=== PATIENT | male | born 1970 | race Caucasian/White ===

== ENCOUNTER 2019-03-16 10:17 | Emergency (ER) | payer OTHER ==
[~2019-03-16] VITALS: Ht 177.8 cm; Wt 119.7 kg
[2019-03-16] MEDS ORDERED: SODIUM CHLORIDE 0.9% 1,000 ML IV ONE ×2 (10:45→13:15)
[2019-03-16] MEDS ORDERED: LORazepam 0.5 MG TAB PO ONE (10:45)
[2019-03-16 10:47] LABS: Basophils # (auto) 0.1 uL; Basophils % (auto) 0.6 % (0.0-2.0); Eosinophils # (auto) 0 uL; Eosinophils % (auto) 0.1 % (0.0-7.0); Hematocrit 45.6 % (41.0-53.0); Hemoglobin 15.3 g/dL (13.5-17.5); Lymphocytes # (auto) 1.8 uL; Lymphocytes % (auto) 17.1 % (10.0-50.0); Mean Corpuscular Hemoglobin 29.6 pg (28.0-32.0); Mean Corpuscular Hgb Conc. 33.6 g/dL (32.0-36.0); Mean Corpuscular Volume 88.2 fL (80.0-100.0); Monocytes # (auto) 0.6 uL; Monocytes % (auto) 5.6 % (0.0-12.0); Neutrophils % (auto) 76.6 % (37.0-80.0); Nucleated Red Blood Cells % 0.1 %; Platelet Count (auto) 386 10^3/uL (140-450); Red Blood Cells 5.17 10^6/uL (4.5-5.90); Red Cell Distribution Width 12.8 % (11.8-14.3); White Blood Cell 10.4 10^3/uL (4.4-10.8)
[2019-03-16] MEDS ORDERED: THIAMINE 100mg/ml INJ (200mg/2ml VIAL) IV ONE (11:00)
[2019-03-16 11:06] LABS: INR 1.13 (0.9-1.15); Partial Thromboplastin Time 26.5 sec (23.64-32.05)
[2019-03-16 11:16] LABS: Albumin 4.1 g/dL (3.4-5.0); Anion Gap 15 (5-15); Blood Urea Nitrogen 10 mg/dL (7-18); Calcium 8.7 mg/dL (8.5-10.1); Carbon Dioxide 20 mmol/L (21-32); Chloride 98 mmol/L (98-107); Glucose 112 mg/dL (74-106); Potassium 3.5 mmol/L (3.5-5.1); Sodium 133 mmol/L (136-145)
[2019-03-16 11:23] LABS: Alanine Aminotransferase 51 U/L (16-61); Alkaline Phosphatase 65 U/L (45-117); Aspartate Aminotransferase 33 U/L (15-37); BUN/Creatinine Ratio 9.3; Bilirubin, Total 0.9 mg/dL (0.2-1.0); GFR African American 94 mL/min; GFR Non-African American 78 mL/min; Total Protein 8.3 g/dL (6.4-8.2)
[2019-03-16] MEDS ORDERED: chlordiazePOXIDE HCL 5 MG CAP PO ONE (13:15)
[2019-03-16 14:47] LABS: Urine Bacteria NONE SEEN /hpf (None Seen); Urine Blood Negative /uL (Negative); Urine Hyaline Cast FEW /lpf (0 - 2); Urine Mucus FEW (None Seen); Urine Specific Gravity 1.019 (1.001-1.035); Urine WBC 1 /hpf (0 - 3)
[2019-03-16] MEDS ORDERED: NITROGLYCERIN 0.4 MG SL TAB SL ONE (15:00)
[2019-03-16] MEDS ORDERED: ASPirin 81 mg TAB PO ONE (15:00)
[2019-03-16] MEDS ORDERED: IOHEXOL 350 MG/ML 100ML IJ ONE (15:01)
[2019-03-16 18:56] VITALS: BP 174/97
== END 2019-03-16 19:05 | disposition short-term general hospital (02) ==
LOC: ER 10:17
DX: I24.9 Acute ischemic heart disease, unspecified (principal); E86.0 Dehydration; F10.10 Alcohol abuse, uncomplicated; I10 Essential (primary) hypertension
CPT/HCPCS: 36415; 71275; 80053; 80320; 81001; 84484; 85025; 85610; 85730; 93005; 96361; 96374; 99285; J3411; J7030; Q9967